=== PATIENT | female | born 1960 | race Caucasian/White ===

== ENCOUNTER 2016-09-16 09:25 | Emergency (ER) | payer MEDICAID ==
[~2016-09-16] VITALS: Ht 162.6 cm; Wt 79.8 kg
[~2016-09-16 09:25] MED LIST: ACE3T PO; ATOR10TA52 PO; CARV6.25 PO; GABA300C8 PO; LURA1TAB2 PO; MULT1TAB57 PO; OMEP20CA5 PO; QUET25TA37 PO; RIV20T PO; SERT-160 PO
[2016-09-16 10:58] LABS: Albumin 3.9 g/dL (3.4-5.0); Alkaline Phosphatase 141 U/L (45-117); Anion Gap 11 (5-15); Aspartate Aminotransferase 26 U/L (15-37); BUN/Creatinine Ratio 21.3; Bilirubin, Total 0.2 mg/dL (0.2-1.0); Blood Urea Nitrogen 19 mg/dL (7-18); Calcium 9.1 mg/dL (8.5-10.1); Carbon Dioxide 24 mmol/L (21-32); Chloride 108 mmol/L (98-107); GFR African American 84 mL/min; GFR Non-African American 70 mL/min; Glucose 100 mg/dL (74-106); Magnesium 2.6 mg/dL (1.6-2.6); Potassium 3.8 mmol/L (3.5-5.1); Sodium 143 mmol/L (136-145); Total Protein 7.8 g/dL (6.4-8.2)
[2016-09-16 11:01] LABS: Basophils # (auto) 0 uL; Basophils % (auto) 0.5 % (0.0-2.0); Eosinophils # (auto) 0.1 uL; Eosinophils % (auto) 1.6 % (0.0-7.0); Hematocrit 39.8 % (36.0-46.0); Hemoglobin 13.5 g/dL (12.2-16.2); Lymphocytes # (auto) 2.4 uL; Lymphocytes % (auto) 28.5 % (10.0-50.0); Mean Corpuscular Hgb Conc. 34.1 g/dL (32.0-36.0); Mean Corpuscular Volume 93.9 fL (80.0-100.0); Mean Platelet Volume 8.8 fL (7.4-10.4); Monocytes # (auto) 0.5 uL; Monocytes % (auto) 6.2 % (0.0-12.0); Neutrophils # (auto) 5.2 uL; Neutrophils % (auto) 63.2 % (37.0-80.0); Platelet Count (auto) 246 10^3/uL (140-450); White Blood Cell 8.3 10^3/uL (4.4-10.8)
[2016-09-16 12:12] VITALS: BP 148/84
== END 2016-09-16 14:38 | disposition home or self-care (01) ==
LOC: ER 09:25
DX: S16.1XXA Strain of muscle, fascia and tendon at neck level, initial encounter (principal); I11.0 Hypertensive heart disease with heart failure; R51 Headache; I50.9 Heart failure, unspecified; M19.90 Unspecified osteoarthritis, unspecified site; J45.909 Unspecified asthma, uncomplicated; F17.210 Nicotine dependence, cigarettes, uncomplicated; Z79.899 Other long term (current) drug therapy; Z88.6 Allergy status to analgesic agent; E11.9 Type 2 diabetes mellitus without complications; Z86.73 Personal history of transient ischemic attack (TIA), and cerebral infarction without residual deficits; Z79.01 Long term (current) use of anticoagulants; W06.XXXA Fall from bed, initial encounter; Y93.89 Activity, other specified; Y99.8 Other external cause status; Y92.89 Other specified places as the place of occurrence of the external cause
CPT/HCPCS: 36415; 70450; 72040; 80053; 83735; 84484; 85025; 93005; 99285; L0120

== ENCOUNTER 2018-07-22 14:26 | Emergency (ER) | payer MEDICAID ==
[~2018-07-22] VITALS: Ht 162.6 cm; Wt 68.0 kg
[~2018-07-22 14:26] MED LIST changes: +GABA300C10 PO; -GABA300C8 PO; -OMEP20CA5 PO; +OMEP20CA74 PO
[2018-07-22 15:59] LABS: Basophils # (auto) 0.1 uL; Basophils % (auto) 0.7 % (0.0-2.0); Eosinophils # (auto) 0.1 uL; Eosinophils % (auto) 1.6 % (0.0-7.0); Hematocrit 37.8 % (36.0-46.0); Hemoglobin 12.7 g/dL (12.2-16.2); Lymphocytes # (auto) 2.4 uL; Lymphocytes % (auto) 31.7 % (10.0-50.0); Mean Corpuscular Hemoglobin 31.8 pg (28.0-32.0); Mean Corpuscular Hgb Conc. 33.5 g/dL (32.0-36.0); Mean Corpuscular Volume 94.9 fL (80.0-100.0); Monocytes # (auto) 0.5 uL; Monocytes % (auto) 6.5 % (0.0-12.0); Neutrophils # (auto) 4.5 uL; Neutrophils % (auto) 59.5 % (37.0-80.0); Nucleated Red Blood Cells % 0.1 %; Platelet Count (auto) 175 10^3/uL (140-450); Red Blood Cells 3.98 10^6/uL (4.0-5.20); Red Cell Distribution Width 13.3 % (11.8-14.3); White Blood Cell 7.6 10^3/uL (4.4-10.8)
[2018-07-22 16:09] LABS: Albumin 3.5 g/dL (3.4-5.0); Calcium 8.5 mg/dL (8.5-10.1); Magnesium 2.3 mg/dL (1.6-2.6); Potassium 3.2 mmol/L (3.5-5.1)
[2018-07-22 16:10] LABS: Bilirubin, Total 0.2 mg/dL (0.2-1.0); Total Protein 7.6 g/dL (6.4-8.2)
[2018-07-23 01:01] VITALS: BP 140/78
== END 2018-07-23 01:02 | disposition home or self-care (01) ==
LOC: EDBD 14:26 → EDUNIT# 14:26 → ER 14:37
DX: M62.838 Other muscle spasm (principal); M54.2 Cervicalgia; R07.9 Chest pain, unspecified; M19.90 Unspecified osteoarthritis, unspecified site; I11.0 Hypertensive heart disease with heart failure; I50.9 Heart failure, unspecified; F17.210 Nicotine dependence, cigarettes, uncomplicated; Z88.5 Allergy status to narcotic agent; Z79.899 Other long term (current) drug therapy; J45.909 Unspecified asthma, uncomplicated; Z86.73 Personal history of transient ischemic attack (TIA), and cerebral infarction without residual deficits; Z90.49 Acquired absence of other specified parts of digestive tract; Z90.710 Acquired absence of both cervix and uterus; Z98.51 Tubal ligation status
CPT/HCPCS: 36415; 70450; 71046; 80053; 83735; 85025; 93005

== ENCOUNTER 2018-10-09 12:42 | Inpatient (IN) | payer MEDICAID ==
[~2018-10-09] VITALS: Ht 162.6 cm; Wt 80.9 kg
[2018-10-09 14:33] LABS: Basophils # (auto) 0 uL; Basophils % (auto) 0.5 % (0.0-2.0); Eosinophils # (auto) 0.1 uL; Hematocrit 36.4 % (36.0-46.0); Hemoglobin 12.1 g/dL (12.2-16.2); Lymphocytes # (auto) 2.4 uL; Lymphocytes % (auto) 28.4 % (10.0-50.0); Mean Corpuscular Hemoglobin 30.7 pg (28.0-32.0); Mean Corpuscular Hgb Conc. 33.2 g/dL (32.0-36.0); Mean Corpuscular Volume 92.6 fL (80.0-100.0); Monocytes # (auto) 0.7 uL; Monocytes % (auto) 7.9 % (0.0-12.0); Neutrophils # (auto) 5.2 uL; Neutrophils % (auto) 62.2 % (37.0-80.0); Platelet Count (auto) 196 10^3/uL (140-450); Red Blood Cells 3.94 10^6/uL (4.0-5.20); Red Cell Distribution Width 14.9 % (11.8-14.3); White Blood Cell 8.4 10^3/uL (4.4-10.8)
[2018-10-09 14:47] LABS: Albumin 3.6 g/dL (3.4-5.0); Anion Gap 9 (5-15); Blood Urea Nitrogen 8 mg/dL (7-18); Calcium 9.1 mg/dL (8.5-10.1); Carbon Dioxide 26 mmol/L (21-32); Chloride 108 mmol/L (98-107); Glucose 79 mg/dL (74-106); Potassium 3.3 mmol/L (3.5-5.1); Sodium 143 mmol/L (136-145)
[2018-10-09 14:52] LABS: Alanine Aminotransferase 29 U/L (13-56); Alkaline Phosphatase 137 U/L (45-117); Aspartate Aminotransferase 19 U/L (15-37); BUN/Creatinine Ratio 9.1; Bilirubin, Total 0.2 mg/dL (0.2-1.0); GFR African American 85 mL/min; GFR Non-African American 70 mL/min; Total Protein 7.3 g/dL (6.4-8.2)
[2018-10-09 14:58] LABS: INR 0.94 (0.9-1.15); Partial Thromboplastin Time 25.4 sec (23.78-33.04); Prothrombin Time 10.1 sec (9.27-12.13)
[2018-10-09] MEDS ORDERED: POTASSIUM CHL 20 Meq TABLET PO ONE (16:15)
[2018-10-09] MEDS ORDERED: ASPirin-EC 81 mg tab PO ONE (16:15)
[2018-10-09] MEDS ORDERED: hydrALAZINE HCL 20 MG/ML VL IV PRN (19:30)
[2018-10-09] MEDS ORDERED: HYDROcodone-ACET 5/325MG TAB PO PRN (19:30)
[2018-10-09] MEDS ORDERED: NITROGLYCERIN 0.4 MG SL TAB SL PRN (19:30)
[2018-10-09] MEDS ORDERED: MORPHINE SULF INJ 2 MG/ML SYRINGE 1ML IV PRN ×2 (19:30)
[2018-10-09] MEDS ORDERED: ACETAMINOPHEN 500 MG TAB PO PRN (19:30)
[2018-10-09] MEDS ORDERED: ONDANSETRON HCL 4 MG/2 ML VIAL IV PRN (19:30)
[2018-10-09] MEDS: METOPROLOL TARTRATE 25 MG TAB PO SCH (21:58)
[2018-10-09] MEDS: DOCUSATE SOD 100 MG CAP PO SCH (21:58)
[2018-10-09] MEDS ORDERED: ATORVASTATIN 20 MG TAB PO SCH (22:00)
--- NOTE | 2018-10-09 22:15 | NUR ---
Received patient from ER. The patient is A/Ox4. The patient c/o chest pain that has been constant since her time in the ER. The patient has been oriented to the room. Instructed on POC and to call for assist PRN, will continue to monitor for changes Q1hr and PRN.
[2018-10-09 22:30] VITALS: BP 132/82
--- NOTE | 2018-10-09 23:00 | NUR ---
Patient states that she takes Denver at home for pain. Denver was held earlier due to allergy to Morphine. Spoke to Pharmacist who states that it is okay to give Denver if the patient has taken it at home without a reaction.
[2018-10-10] MEDS: HYDROcodone-ACET 5/325MG TAB PO PRN ×2 (00:19→07:43)
[2018-10-10 00:53] VITALS: BP 116/69
[2018-10-10] MEDS ORDERED: HYDR-531 PO (04:11)
[2018-10-10 05:16] VITALS: BP 106/70
--- NOTE | 2018-10-10 07:30 | NUR ---
Opening Shift Note Assumed care of patient, awake and alert. No S/S of distress/SOB. Pain reported to the chest. Pain management options discussed with the patient. Instructed on POC and to call for assist PRN, will continue to monitor for changes Q1hr and PRN.
[2018-10-10 08:00] VITALS: BP 96/57
[2018-10-10 08:14] LABS: Basophils # (auto) 0 uL; Basophils % (auto) 0.6 % (0.0-2.0); Eosinophils # (auto) 0.2 uL; Eosinophils % (auto) 2.6 % (0.0-7.0); Hematocrit 36.5 % (36.0-46.0); Hemoglobin 12.3 g/dL (12.2-16.2); Lymphocytes # (auto) 2.2 uL; Lymphocytes % (auto) 34.3 % (10.0-50.0); Mean Corpuscular Hemoglobin 31.3 pg (28.0-32.0); Mean Corpuscular Hgb Conc. 33.6 g/dL (32.0-36.0); Mean Corpuscular Volume 92.9 fL (80.0-100.0); Monocytes # (auto) 0.4 uL; Monocytes % (auto) 6.1 % (0.0-12.0); Neutrophils # (auto) 3.6 uL; Neutrophils % (auto) 56.4 % (37.0-80.0); Nucleated Red Blood Cells % 0.1 %; Platelet Count (auto) 198 10^3/uL (140-450); Red Blood Cells 3.93 10^6/uL (4.0-5.20); Red Cell Distribution Width 14.8 % (11.8-14.3); White Blood Cell 6.5 10^3/uL (4.4-10.8)
[2018-10-10 08:41] LABS: INR 0.96 (0.9-1.15); Partial Thromboplastin Time 24.9 sec (23.78-33.04); Prothrombin Time 10.3 sec (9.27-12.13)
[2018-10-10 08:49] LABS: BUN/Creatinine Ratio 10.3; Potassium 4.2 mmol/L (3.5-5.1)
[2018-10-10 08:53] VITALS: BP 96/57
[2018-10-10] MEDS: METOPROLOL TARTRATE 25 MG TAB PO SCH (10:00)
[2018-10-10] MEDS ORDERED: ASPirin-EC 81 mg tab PO SCH (10:00)
[2018-10-10] MEDS ORDERED: PANTOPRAZOLE 40 MG/10 ML VIAL IV SCH (10:00)
[2018-10-10] MEDS ORDERED: LISINOPRIL 10 MG TAB PO SCH (10:00)
[2018-10-10 11:10] LABS: Alcohol, Urine < 3.0 mg/dL (0-5); Amphetamine Screen, Urine NEGATIVE (NEGATIVE); Barbiturate Scree,Urine NEGATIVE (NEGATIVE); Benzodiazephine Screen, Urine NEGATIVE (NEGATIVE); Cannabinoid Screen, Urine NEGATIVE (NEGATIVE); Cocaine Screen, Urine NEGATIVE (NEGATIVE); Opiate Scree,Urine POSITIVE (NEGATIVE); Phencyclidine Screen, Urine NEGATIVE (NEGATIVE)
[2018-10-10 11:11] LABS: Urine Bacteria FEW /hpf (None Seen); Urine Blood Negative /uL (Negative); Urine Specific Gravity 1.022 (1.001-1.035); Urine WBC 79 /hpf (0 - 5)
[2018-10-10] MEDS: DOCUSATE SOD 100 MG CAP PO SCH (12:39)
[2018-10-10 13:00] VITALS: BP 98/54
[2018-10-10] MEDS ORDERED: cefTRIAXone 1GM/50ML D5W 50 ML IV ONE (13:15)
--- NOTE | 2018-10-10 14:15 | NUR ---
spoke with Efren GOLDEN. i informed him that the patient's echo would not be read until friday. Received order to move forward with the discharge anyway.
[2018-10-10 15:56] VITALS: BP 98/54
--- NOTE | 2018-10-10 16:44 | NUR ---
called [facility] [employer] to get patient transportation home. they will be here in about 15 minutes.
--- NOTE | 2018-10-10 17:12 | NUR ---
Discharge instructions given as ordered. Encourage to follow up with PMD as instructed. All questions and concerns addressed. Patient verbalized understanding. IV removed with catheter intact, pressure dressing applied. Telemetry unit returned to [facility]. Patient taken to taxi via wheelchair with all personal belongings, accompanied by staff. No distress noted at time of departure.
== END 2018-10-10 17:50 | disposition home or self-care (01) | DRG 463 ==
LOC: EDBD 12:42 → ER 12:42 → TELE 19:28 → TELE-WESTW 22:05
PROVIDERS: ADMIT Nurse Practitioner Acute Care; ATTEND Nurse Practitioner Acute Care
DX: N39.0 Urinary tract infection, site not specified (principal); I11.0 Hypertensive heart disease with heart failure; F25.9 Schizoaffective disorder, unspecified; I50.32 Chronic diastolic (congestive) heart failure; R07.89 Other chest pain; E87.6 Hypokalemia; R53.1 Weakness; F32.9 Major depressive disorder, single episode, unspecified; M19.90 Unspecified osteoarthritis, unspecified site; F41.9 Anxiety disorder, unspecified; F17.210 Nicotine dependence, cigarettes, uncomplicated; E78.5 Hyperlipidemia, unspecified; D64.9 Anemia, unspecified; J45.909 Unspecified asthma, uncomplicated; Z79.899 Other long term (current) drug therapy; Z82.49 Family history of ischemic heart disease and other diseases of the circulatory system; Z86.73 Personal history of transient ischemic attack (TIA), and cerebral infarction without residual deficits; Z90.710 Acquired absence of both cervix and uterus; Z88.5 Allergy status to narcotic agent; Z90.49 Acquired absence of other specified parts of digestive tract; Z98.51 Tubal ligation status
CPT/HCPCS: 36415; 70450; 71045; 80048; 80053; 80061; 80307; 81001; 83036; 83735; 83880; 84443; 84484; 85025; 85610; 85730; 86141; 93005; 93306; 94761; C9113; G0378; J0696

== ENCOUNTER 2019-09-15 08:33 | Emergency (ER) | payer MEDICAID ==
[~2019-09-15] VITALS: Ht 162.6 cm; Wt 77.1 kg
[~2019-09-15 08:33] MED LIST changes: +HYDR-531 PO
[2019-09-15] MEDS ORDERED: SODIUM CHLORIDE 0.9% 1,000 ML IV ONE (08:55)
[2019-09-15 09:11] LABS: Urine Bacteria FEW /hpf (None Seen); Urine Blood Negative /uL (Negative); Urine Specific Gravity 1.007 (1.001-1.035); Urine WBC 11 /hpf (0 - 5)
[2019-09-15 09:19] LABS: Alcohol, Urine < 3.0 mg/dL (0-5); Amphetamine Screen, Urine NEGATIVE (NEGATIVE); Barbiturate Scree,Urine NEGATIVE (NEGATIVE); Benzodiazephine Screen, Urine NEGATIVE (NEGATIVE); Cannabinoid Screen, Urine NEGATIVE (NEGATIVE); Cocaine Screen, Urine NEGATIVE (NEGATIVE); Opiate Scree,Urine NEGATIVE (NEGATIVE); Phencyclidine Screen, Urine NEGATIVE (NEGATIVE)
[2019-09-15 09:55] LABS: Basophils # (auto) 0.1 10 ^3/uL (0-0.2); Basophils % (auto) 0.6 % (0.0-2.0); Eosinophils # (auto) 0.1 10 ^3/uL (0-0.8); Eosinophils % (auto) 0.9 % (0.0-7.0); Hematocrit 38.1 % (36.0-46.0); Hemoglobin 12.8 g/dL (12.2-16.2); Lymphocytes # (auto) 2.6 10 ^3/uL (0.4-5.4); Lymphocytes % (auto) 28.4 % (10.0-50.0); Mean Corpuscular Hemoglobin 32.7 pg (28.0-32.0); Mean Corpuscular Hgb Conc. 33.6 g/dL (32.0-36.0); Mean Corpuscular Volume 97.2 fL (80.0-100.0); Monocytes # (auto) 0.5 10 ^3/uL (0-1.3); Monocytes % (auto) 5.3 % (0.0-12.0); Neutrophils # (auto) 5.9 10 ^3/uL (1.6-8.6); Neutrophils % (auto) 64.8 % (37.0-80.0); Platelet Count (auto) 189 10^3/uL (140-450); Red Blood Cells 3.92 10^6/uL (4.0-5.20); Red Cell Distribution Width 13.1 % (11.8-14.3); White Blood Cell 9.1 10^3/uL (4.4-10.8)
[2019-09-15] MEDS ORDERED: KETOROLAC TROMETH 15 mg/ml 1ML VL IV ONE (10:00)
[2019-09-15 10:22] LABS: Albumin 3.4 g/dL (3.4-5.0); Anion Gap 7 (5-15); Calcium 8.7 mg/dL (8.5-10.1); Carbon Dioxide 23 mmol/L (21-32); Chloride 110 mmol/L (98-107); Glucose 92 mg/dL (74-106); Magnesium 2.3 mg/dL (1.6-2.6); Potassium 4.4 mmol/L (3.5-5.1); Sodium 140 mmol/L (136-145)
[2019-09-15 11:00] LABS: Alanine Aminotransferase 32 U/L (13-56); Alkaline Phosphatase 151 U/L (45-117); Aspartate Aminotransferase 24 U/L (15-37); Bilirubin, Total 0.3 mg/dL (0.2-1.0); Blood Urea Nitrogen 12 mg/dL (7-18); GFR African American 87 mL/min; GFR Non-African American 72 mL/min
[2019-09-15 17:11] VITALS: BP 142/76
== END 2019-09-15 17:28 | disposition home or self-care (01) ==
LOC: ER 08:33
DX: R51 Headache (principal); N39.0 Urinary tract infection, site not specified; F31.9 Bipolar disorder, unspecified; R42 Dizziness and giddiness; I11.0 Hypertensive heart disease with heart failure; I50.9 Heart failure, unspecified; K21.9 Gastro-esophageal reflux disease without esophagitis; E78.5 Hyperlipidemia, unspecified; Z98.51 Tubal ligation status; Z90.49 Acquired absence of other specified parts of digestive tract; Z90.710 Acquired absence of both cervix and uterus; Z87.891 Personal history of nicotine dependence; Z86.73 Personal history of transient ischemic attack (TIA), and cerebral infarction without residual deficits
CPT/HCPCS: 36415; 71046; 80053; 80307; 81001; 83735; 84443; 84484; 85025; 93005; 96361; 96374; 99285; J1885; J7030

== ENCOUNTER 2020-12-18 11:12 | Emergency (ER) | payer MEDICAID ==
[~2020-12-18] VITALS: Ht 152.4 cm; Wt 68.0 kg
[~2020-12-18 11:12] MED LIST changes: +LURA1TAB PO; -LURA1TAB2 PO
[2020-12-18 12:52] LABS: Urine Bacteria FEW /hpf (None Seen); Urine Blood Negative /uL (Negative); Urine Hyaline Cast FEW /lpf (0 - 2); Urine Specific Gravity 1.007 (1.001-1.035); Urine WBC 23 /hpf (0 - 5)
[2020-12-18 13:17] LABS: Basophils # (auto) 0.1 10 ^3/uL (0-0.2); Basophils % (auto) 0.8 % (0.0-2.0); Eosinophils # (auto) 0 10 ^3/uL (0-0.8); Eosinophils % (auto) 0.1 % (0.0-7.0); Hematocrit 37.5 % (36.0-46.0); Hemoglobin 12.7 g/dL (12.2-16.2); Lymphocytes # (auto) 1.7 10 ^3/uL (0.4-5.4); Lymphocytes % (auto) 13.2 % (10.0-50.0); Mean Corpuscular Hemoglobin 31.6 pg (28.0-32.0); Mean Corpuscular Hgb Conc. 33.9 g/dL (32.0-36.0); Mean Corpuscular Volume 93.3 fL (80.0-100.0); Monocytes # (auto) 0.7 10 ^3/uL (0-1.3); Monocytes % (auto) 5.7 % (0.0-12.0); Neutrophils # (auto) 10.2 10 ^3/uL (1.6-8.6); Neutrophils % (auto) 80.2 % (37.0-80.0); Nucleated Red Blood Cells % 0.1 %; Platelet Count (auto) 163 10^3/uL (140-450); Red Blood Cells 4.02 10^6/uL (4.0-5.20); Red Cell Distribution Width 13.7 % (11.8-14.3); White Blood Cell 12.7 10^3/uL (4.4-10.8)
[2020-12-18 13:35] LABS: Albumin 3.4 g/dL (3.4-5.0); Calcium 8.7 mg/dL (8.5-10.1); Potassium 3.2 mmol/L (3.5-5.1)
[2020-12-18 13:38] LABS: BUN/Creatinine Ratio 10.5; Bilirubin, Total 0.6 mg/dL (0.2-1.0); Total Protein 7.4 g/dL (6.4-8.2)
[2020-12-18 14:46] VITALS: BP 102/66
== END 2020-12-18 15:41 | disposition home or self-care (01) ==
LOC: ER 11:12 → EDBD 11:12 → ER 15:41
DX: N39.0 Urinary tract infection, site not specified (principal); E87.6 Hypokalemia; I11.0 Hypertensive heart disease with heart failure; I50.9 Heart failure, unspecified; E78.5 Hyperlipidemia, unspecified; K21.9 Gastro-esophageal reflux disease without esophagitis; Z79.899 Other long term (current) drug therapy; Z87.891 Personal history of nicotine dependence; Z20.822 Contact with and (suspected) exposure to COVID-19
CPT/HCPCS: 36415; 70450; 71045; 80053; 81001; 85025; 87426; 93005

== ENCOUNTER 2024-10-14 10:40 | Inpatient (IN) | payer MEDICAID ==
[~2024-10-14] VITALS: Ht 165.1 cm; Wt 81.4 kg
[~2024-10-14 10:40] MED LIST changes: -CARV6.25 PO; +CARV6.2517 PO; +GABA-1250 PO; -GABA300C10 PO
--- NOTE | 2024-10-14 10:56 | ED.PDOC ---
History of Present Illness HPI Comments 64-year-old female who comes in with chief complaint of near-syncope today. The [place] and had two episodes where she almost passed out. The patient did not hit her head or have any other injuries. The patient denies any chest pain or shortness for breath but she was complaining of dizziness and a headache. She denies any nausea, vomiting or diarrhea. EN route the patient's Accu-Chek was 160. The patient's seems a little confused so the history is not completely reliable. Chief Complaint: Syncope Time Seen by MD: 10:46 Primary Care Provider: UNKNOWN Reviewed Notes: Nurses Notes, Multimedia Designer Notes, Medications, Allergies (Allergies to morphine) Allergies: Coded Allergies: Morphine (Verified Allergy, Unknown, 06/12/16) HIVES/RASH Home Meds Reported Medications Hydrocodone-Acetaminophen (Bally 10-325 mg) 1 Tab Tab, 1 TAB PO PRN for PAIN SCALE 7 THRU 10, TAB 10/10/18 Atorvastatin Calcium (ATORVASTATIN CALCIUM) 10 Mg Tab, 10 MG PO HS, TAB 04/25/16 Carvedilol (Coreg) 6.25 Mg Tab, 6.25 MG PO BID, TAB 04/25/16 Multiple Vitamins W/ Minerals (One Daily Multivitamin Wo) 1 Tab Tab, 1 TAB PO DAILY, TAB 04/25/16 Lurasidone Hydrochloride (Latuda) 60 Mg Tab, 40 MG PO BID, TAB 04/25/16 Rivaroxaban (Xarelto Tablet) 20 Mg Tb, 20 MG PO DAILY 04/25/16 Acetaminophen W/ Codeine (Tylenol W/Cod #3) 1 Tab Tb, 1 TAB PO Q6HP PRN for MODERATE PAIN 04/25/16 Sertraline Hcl (Sertraline Hcl) 100 Mg Tab, 100 MG PO QAM, TAB 04/25/16 Omeprazole (PRILOSEC) 20 Mg Cap, 20 MG PO DAILY, CAP 04/25/16 Gabapentin (Gabapentin) 300 Mg Cap, 400 MG PO TID, MG 04/25/16 Quetiapine Fumerate (Seroquel) 25 Mg Tab, 100 MG PO HS, MG 04/25/16 Information Source: Patient, Emergency Med Personnel Mode of Arrival: EMS Severity: Moderate Timing: Hours Duration: Intermittent Prehospital treatment: Accucheck (One hundred sixty), Imagery Intelligence, IVF Associated signs and symptoms No associated chest pain with the patient was complaining of dizziness and headache Past Medical History PAST MEDICAL HISTORY: Anxiety, Arthritis, Asthma, CHF, CVA, Depression, GERD, High Lipids, HTN Surgical History: Cholecystectomy, Hysterectomy, Tubal Ligation NON FOOD RECEIVING CLERK History: No Pertinent NON FOOD RECEIVING CLERK History Family History Family History: No family hx of HTN Social History Smoker: Non-Smoker, Quit Less Than 1 Year Alcohol: Denies ETOH Use Drugs: Denies Drug Use Lives In: Assisted Care Constitutional: reports: weakness; denies: chills, diaphoresis, fatigue, fever, malaise, sweats, others EENTM: denies: blurred vision, double vision, ear bleeding, ear discharge, ear drainage, ear pain, ear ringing, eye pain, eye redness, hearing loss, mouth pain, mouth swelling, nasal discharge, nose bleeding, nose congestion, nose pain, photophobia, tearing, throat pain, throat swelling, voice changes, others Respiratory: denies: cough, hemoptysis, orthopnea, SOB at rest, shortness of breath, SOB with excertion, stridor, wheezing, others Cardiovascular: reports: syncope; denies: chest pain, dizzy spells, diaphoresis, Dyspnea on exertion, edema, irregular heart beat, left arm pain, lightheadedness, palpitations, PND, others Gastrointestinal: denies: abdomen distended, abdominal pain, blood streaked bowels, constipated, diarrhea, dysphagia, difficulty swallowing, hematemesis, melena, nausea, poor appetite, poor fluid intake, rectal bleeding, rectal pain, vomiting, others Genitourinary: denies: abnormal vagina bleeding, burning, dyspareunia, dysuria, flank pain, frequency, hematuria, incontinence, pain, , vagina discharge, urgency, others Neurological: reports: dizziness, headache; denies: fainting, left sided numbness, left sided weakness, numbness, paresthesia, pre-existing deficit, right sided numbness, right sided weakness, seizure, speech problems, tingling, tremors, weakness, others Musculoskeletal: denies: back pain, gout, joint pain, joint swelling, muscle pain, muscle stiffness, neck pain, others Integumetry: denies: bruises, change in color, change in hair/nails, dryness, laceration, lesions, lumps, rash, wounds, others Allergic/Immunocompromised: denies: Difficulty Healing, Frequent Infections, Hives, Itching, others Hematologic/Lymphatic: denies: anemia, blood clots, easy bleeding, easy bruising, swollen glands, others Endocrine: denies: excessive hunger, excessive sweating, excessive thirst, excessive urination, flushing, intolerance to cold, intolerance to heat, unexplained weight gain, unexplained weight loss, others Psychiatric: denies: anxiety, bipolar disorder, depression, hopeless, panic disorder, schizophrenia, sleepless, suicidal, others Physical Exam General Appearance: Moderate Distress HEENT: Normal ENT Inspection, Pharynx Normal, TMs Normal Neck: Full Range of Motion, Non-Tender, Normal, Normal Inspection Respiratory: Chest Non-Tender, Lungs Clear, No Accessory Muscle Use, No Respiratory Distress, Normal Breath Sounds Cardiovascular: No Edema, No JVD, No Murmur, No Gallop, Normal Peripheral Pulses, Regular Rate/Rhythm Breast Exam: Deferred Gastrointestinal: No Organomegaly, Non Tender, No Pulsatile Mass, Normal Bowel Sounds, Soft Genitalia: Deferred Pelvic: Deferred Rectal: Deferred Extremities: No calf tenderness, Normal capillary refill, Normal inspection, Normal range of motion, Non-tender, No pedal edema Musculoskeletal : Apperance: Normal Neurologic: Alert, surgical orderly II-XII nml as Tested, Motor Weakness, Normal Affect, Normal Mood, No Sensory Deficits Cerebellar Function: Normal Reflexes: Normal Skin: Dry, Pallor, Warm Lymphatic: No Adenopathy Was a procedure done? Was a procedure done?: No EKG EKG : Pulse Rate (adult): 80 Deport: Normal Cardiac Rhythm: NSR Block: None ST: Nonsp Differential Dx Considerations may include: Generalized weakness, syncope, blunt head trauma, chest pain X-Ray, Labs, Meds, VS Vital Signs Date Time Temp Pulse Resp B/P (MAP) Pulse Ox O2 Delivery O2 Flow Rate FiO2 10/14/24 13:00 76 19 155/93 (113) 98 10/14/24 11:18 87 16 98 Room Air* 0 21 10/14/24 11:17 80 10/14/24 11:04 98.0 87 16 154/86 (108) 98 98.0 10/14/24 10:53 98.4 82 16 138/102 (114) 97 98.4 10/14/24 10:40 80 Lab Test 10/14/24 11:55 10/14/24 11:42 10/14/24 10:56 Range/Units Troponin I High Sensitivity < 3 L < 3 L </=34 ng/L Urine Color Colorless Yellow Urine Clarity Clear Clear Urine pH 6.0 5.0-9.0 Urine Specific [place] 1.009 1.001-1.035 Urine Protein Negative Negative Urine Ketones Negative Negative Urine Blood Negative Negative /uL Urine Nitrite Negative Negative Urine Bilirubin Negative Negative Urine Urobilinogen Normal Negative mg/dL Urine Leukocyte Esterase Trace Negative /uL Urine RBC 1 0 - 4 /hpf Urine Microscopic WBC 5 0-5 /HPF Urine Squamous Epithelial Cells Few <5 /hpf Urine Bacteria Few H None Seen /hpf Urine Glucose Normal Normal mg/dL Urine Opiates Screen Neg NEGATIVE Urine Fentanyl Screen Neg NEGATIVE Urine Barbiturates Screen Neg NEGATIVE Urine Phencyclidine Screen Neg NEGATIVE Urine Amphetamines Screen Neg NEGATIVE Urine Benzodiazepines Screen Neg NEGATIVE Urine Cocaine Screen Neg NEGATIVE Urine Cannabinoids Screen Neg NEGATIVE White Blood Count 7.8 4.4-10.8 10^3/uL Red Blood Count 4.25 4.0-5.20 10^6/uL Hemoglobin 13.7 12.2-16.2 g/dL Hematocrit 41.1 36.0-46.0 % Mean Corpuscular Volume 96.7 80.0-100.0 fL Mean Corpuscular Hemoglobin 32.1 H 28.0-32.0 pg Mean Corpuscular Hemoglobin Concent 33.2 32.0-36.0 g/dL Red Cell Distribution Width 13.1 11.8-14.3 % Platelet Count 158 140-450 10^3/uL Mean Platelet Volume 8.2 6.9-10.8 fL Neutrophils (%) (Auto) 66.7 37.0-80.0 % Lymphocytes (%) (Auto) 25.8 10.0-50.0 % Monocytes (%) (Auto) 5.2 0.0-12.0 % Eosinophils (%) (Auto) 1.7 0.0-7.0 % Basophils (%) (Auto) 0.6 0.0-2.0 % Neutrophils # (Auto) 5.2 1.6-8.6 10 ^3/uL Lymphocytes # (Auto) 2.0 0.4-5.4 10 ^3/uL Monocytes # (Auto) 0.4 0-1.3 10 ^3/uL Eosinophils # (Auto) 0.1 0-0.8 10 ^3/uL Basophils # (Auto) 0 0-0.2 10 ^3/uL Nucleated Red Blood Cells 0.0 % Sodium Level 141 136-145 mmol/L Potassium Level 4.3 3.5-5.1 mmol/L Chloride Level 109 H 98-107 mmol/L Carbon Dioxide Level 23 20-31 mmol/L Anion Gap 9 5-15 Blood Urea Nitrogen 13 9-23 mg/dL Creatinine 0.97 0.550-1.02 mg/dL Glomerular Filtration Rate Calc 65 >90 mL/min BUN/Creatinine Ratio 13.4 10.0-20.0 Serum Glucose 171 H 74-106 mg/dL Calcium Level 9.7 8.7-10.4 mg/dL Plasma/Serum Blood Alcohol < 3.0 <10 mg/dL [place] [address] Ph: [phone] DIAGNOSTIC IMAGING Diagnostic Imaging Report : [id number] Signed PATIENT: AADM REZA ACCT: [id number] UNIT: [id number] : 1960 LOC: ER ROOM / BED: / AGE / SEX: 64 / F ADM STATUS: REG ER SERVICE [id number] ORDERING PHYSICIAN: NIKA GOLDBERG MD PROCEDURE(s): CXRP - CHEST PORTABLE REASON: syncope ORDER NUMBER(s): [id number], ACCESSION NUMBER(s): [id number] CHEST RADIOGRAPH Indication: syncope Technique: Single frontal view of the chest was obtained COMPARISON: CHEST PORTABLE on DOS: 12/18/20 FINDINGS: Lines and Tubes: None Lungs: Increased interstitial prominence Pleura: No effusion. No pneumothorax. Cardiomediastinal contours: Unremarkable Bones: Unremarkable IMPRESSION: Pulmonary vascular congestion or viral pneumonia ATED BY: COLEMAN BARAKAT MD DICTATED DATE/TIME: 10/14/24 112 SIGNED BY: COLEMAN BARAKAT MD SIGNED DATE/TIME: 10/14/241119 CC: [place] [address] Ph: [phone] DIAGNOSTIC IMAGING Diagnostic Imaging Report : [id number] Signed PATIENT: ADAM REZA ACCT: [id number] UNIT: [id number] : 1960 LOC: ER ROOM / BED: / AGE / SEX: 64 / F ADM STATUS: REG ER SERVICE [id number] ORDERING PHYSICIAN: NIKA GOLDBERG MD PROCEDURE(s): HWOCT - HEAD WITHOUT CONTRAST REASON: syncope ORDER NUMBER(s): [id number], ACCESSION NUMBER(s): [id number] EXAM: CT HEAD WITHOUT CONTRAST INDICATION: syncope TECHNIQUE: CT of the head without intravenous contrast. Radiation Dose : 1. Head: CT Dose: CTDI volume is 51 mGy. Dose-length product is 901 mGy*cm The dose indicators for CT are the volume Computed Tomography (CT) Dose Index (CTDIvol) and the Dose Length Product (DLP), and are measured in units of mGy and mGy-cm, respectively. These indicators are not patient dose, but values generated from the CT scanner acquisition factors. The report includes radiation exposure data for exposures received during this examination. COMPARISON: HEAD WITHOUT CONTRAST on DOS: 12/18/20 FINDINGS: There is no evidence of acute intracranial hemorrhage, extra-axial collection, mass effect, midline shift, herniation or hydrocephalus. Left basal ganglia chronic lacunar infarct. The ventricles, sulci and cisterns are age appropriate. The arriaga-white differentiation is intact. Patchy periventricular and subcortical white matter hypoattenuation is nonsp ecific but may be related to small vessel ischemic disease. The visualized paranasal sinuses and mastoid air cells are clear. The surrounding soft tissues and osseous structures are unremarkable. IMPRESSION: No acute intracranial abnormality. Radiation optimization: All CT scans at this facility use at least one of these dose optimization techniques: automated exposure control mA and/or kV adjustment per patient size (includes targeted exams where dose is matched to clinical indication) or iterative reconstruction. ATED BY: COLEMAN BARAKAT MD DICTATED DATE/TIME: 10/14/241126 SIGNED BY: COLEMAN BARAKAT MD SIGNED DATE/TIME: 10/14/24 112 CC: IV Hep-Lock was established. The chest x-ray shows: IMPRESSION: Pulmonary vascular congestion or viral pneumonia The patient's CBC is within normal limits The chemistry panel is within normal limits The alcohol level is negative The urine tox is negative The urine test is positive for trace infection At this time, the patient was being admitted to the hospitalist Images Reviewed?: Images reviewed and evaluated by me Time of 1ST Reevaluation: 11:16 Reevaluation 1ST: Unchanged Patient Education/Counseling: Diagnosis, Treatment, Prognosis Family Education/Counseling: No Family Present Departure 1 Departure Time of Disposition: 14:25 Impression: Primary Impression: Generalized weakness Additional Impressions: Autonomic dysfunction UTI (urinary tract infection) Qualified Codes: N30.00 - Acute cystitis without hematuria Disposition: ADMITTED INPATIENT Admit to: Tele Condition: Fair Critical Care Note Critical Care Time?: Yes (35 min-critical care time only) Stability Stability form required: Yes Unstable for transfer: Telemetry monitoring (Telemetry monitoring required), ED Physician Assesment (Clinical assesment) Heart Score Heart Score: Heart Score Response (Comments) Value History N/A 0 EKG N/A 0 Age N/A 0 Risk Factors N/A 0 Troponin N/A 0 Total 0 I personally scribed for NIKA GOLDBERG MD ([email or web address]) on 10/14/24 at 11:35. Electronically submitted by Marni Roe ([email or web address]). I personally scribed for NIKA GOLDBERG MD ([email or web address]) on 10/14/24 at 11:36. Electronically submitted by Marni Roe ([email or web address]). NIKA GOLDBERG MD Oct 14, 2024 10:56
[2024-10-14 11:08] LABS: Basophils # (auto) 0 10 ^3/uL (0-0.2); Basophils % (auto) 0.6 % (0.0-2.0); Eosinophils # (auto) 0.1 10 ^3/uL (0-0.8); Eosinophils % (auto) 1.7 % (0.0-7.0); Hematocrit 41.1 % (36.0-46.0); Hemoglobin 13.7 g/dL (12.2-16.2); Lymphocytes % (auto) 25.8 % (10.0-50.0); Mean Corpuscular Hemoglobin 32.1 pg (28.0-32.0); Mean Corpuscular Hgb Conc. 33.2 g/dL (32.0-36.0); Mean Corpuscular Volume 96.7 fL (80.0-100.0); Monocytes # (auto) 0.4 10 ^3/uL (0-1.3); Monocytes % (auto) 5.2 % (0.0-12.0); Neutrophils # (auto) 5.2 10 ^3/uL (1.6-8.6); Neutrophils % (auto) 66.7 % (37.0-80.0); Platelet Count (auto) 158 10^3/uL (140-450); Red Blood Cells 4.25 10^6/uL (4.0-5.20); Red Cell Distribution Width 13.1 % (11.8-14.3); White Blood Cell 7.8 10^3/uL (4.4-10.8)
[2024-10-14 11:18] VITALS: PULSE 87; RESP 16; O2SAT 98
--- NOTE | 2024-10-14 11:22 | DVH ---
CHEST RADIOGRAPH Indication: syncope Technique: Single frontal view of the chest was obtained COMPARISON: CHEST PORTABLE on DOS: 12/18/20 FINDINGS: Lines and Tubes: None Lungs: Increased interstitial prominence Pleura: No effusion. No pneumothorax. Cardiomediastinal contours: Unremarkable Bones: Unremarkable IMPRESSION: Pulmonary vascular congestion or viral pneumonia
[2024-10-14 11:26] LABS: Potassium 4.3 mmol/L (3.5-5.1); Sodium 141 mmol/L (136-145)
[2024-10-14 11:27] LABS: Anion Gap 9 (5-15); Calcium 9.7 mg/dL (8.7-10.4); Carbon Dioxide 23 mmol/L (20-31)
--- NOTE | 2024-10-14 11:29 | DVH ---
EXAM: CT HEAD WITHOUT CONTRAST INDICATION: syncope TECHNIQUE: CT of the head without intravenous contrast. Radiation Dose : 1. Head: CT Dose: CTDI volume is 51 mGy. Dose-length product is 901 mGy*cm The dose indicators for CT are the volume Computed Tomography (CT) Dose Index (CTDIvol) and the Dose Length Product (DLP), and are measured in units of mGy and mGy-cm, respectively. These indicators are not patient dose, but values generated from the CT scanner acquisition factors. The report includes radiation exposure data for exposures received during this examination. COMPARISON: HEAD WITHOUT CONTRAST on DOS: 12/18/20 FINDINGS: There is no evidence of acute intracranial hemorrhage, extra-axial collection, mass effect, midline s hift, herniation or hydrocephalus. Left basal ganglia chronic lacunar infarct. The ventricles, sulci and cisterns are age appropriate. The arriaga-white differentiation is intact. Patchy periventricular and subcortical white matter hypoattenuation is nonspecific but may be related to small vessel ischemic disease. The visualized paranasal sinuses and mastoid air cells are clear. The surrounding soft tissues and osseous structures are unremarkable. IMPRESSION: No acute intracranial abnormality. Radiation optimization: All CT scans at this facility use at least one of these dose optimization vero hniques: automated exposure control mA and/or kV adjustment per patient size (includes targeted exam s where dose is matched to clinical indication) or iterative reconstruction.
[2024-10-14 11:32] LABS: BUN/Creatinine Ratio 13.4 (10.0-20.0); Blood Urea Nitrogen 13 mg/dL (9-23)
[2024-10-14 11:33] LABS: Blood Alcohol < 3.0 mg/dL (<10); Chloride 109 mmol/L (98-107); Glucose 171 mg/dL (74-106)
[2024-10-14 12:09] LABS: Urine Bacteria FEW /hpf (None Seen); Urine Blood Negative /uL (Negative); Urine Clarity Clear (Clear); Urine Color Colorless (Yellow); Urine Protein, UAD Negative (Negative); Urine Specific Gravity 1.009 (1.001-1.035); Urine Squamous Epithelial Cell FEW /hpf (<5); Urine Urobilinogen Normal (Negative); Urine WBC 5 /HPF (0-5)
[2024-10-14 12:21] LABS: Cannabinoid Screen, Urine Neg (NEGATIVE)
[2024-10-14 12:30] LABS: Opiate Scree,Urine Neg (NEGATIVE)
[2024-10-14 12:31] LABS: Amphetamine Screen, Urine Neg (NEGATIVE); Barbiturate Scree,Urine Neg (NEGATIVE); Benzodiazephine Screen, Urine Neg (NEGATIVE); Cocaine Screen, Urine Neg (NEGATIVE); Phencyclidine Screen, Urine Neg (NEGATIVE)
[2024-10-14] MEDS: cefTRIAXone 1GM/50ML D5W 50 ML IV ONE (14:52)
--- NOTE | 2024-10-14 18:55 | ECG ---
[facility] Test Date: 2024-10-14 Test Time: 10:38:35 Pat Name: ADAM REZA Department: ED Room: 0251T Gender: F Spa Experience Coordinator: NICHO : 1960 Requested By: NIKA GOLDBERG Order Number: [id number] Reading MD: Natan Villa Measurements Intervals [place] Rate: 80 P: 73 WV: 134 QRS: 71 QRSD: 89 T: 45 QT: 397 QTc: 458 Interpretive Statements Sinus rhythm Electronically Signed On 10-15-2024 18:45:50 PDT by Natan Villa Please click the below link to view image of tracing.
[2024-10-14] MEDS ORDERED: cefTRIAXone 2GM/50ML D5W 50 ML IV ONE (23:15)
--- NOTE | 2024-10-14 23:20 | DVHHPRES ---
History of Present Illness Resident Creating Document: KANWAL ROSE RESIDENT Reason for Visit: syncope History of Present Illness Patient is a 64-year-old female who was brought to the ED to due to pre-syncopal episode. [place] where she had two episodes of " almost passed out". EN route the patient's Accu-Chek was 160. She did not hit her did not hit her head or had any other injuries. The patient denies any chest pain, palpitation or shortness of breath but she complained of dizziness and a headache. She denies any nausea, vomiting or diarrhea. She denied any cardiac history but mentioned that she takes lots of medication morning, afternoon and in the evening. In the ED, CT head showed no acute intracranial abnormality, chest ex-ray showed Pulmonary vascular congestion or viral pneumonia, Ekg showed sinus rhythm and no prolong QTc. Urinalysis showed trace leukocyte esterase with few bacteria and toxicology was negative for any illicit substances that might have caused the syncope. Patient's home medication include carvedilol. Pmhx: Paroxysmal AFIB, Anxiety, Arthritis, Asthma, CHF, CVA, Depression, GERD, hyperlipidemia, HTN Past Surgical History: Cholecystectomy, Hysterectomy, Tubal Ligation MANAGER TREASURY History: No Pertinent MANAGER TREASURY History Family History: No family hx of HTN Social history: quit smoking about a year ago, denied any alcohol use or illicit drug use lives in assisted living Medication: Rivaroxaban, fluoxetine Past Medical History See hpi Past Surgical History See hpi Review of Systems Review of Systems Constitutional: Denies fever no chills no feeling of malaise HEENT: Denies headache, ear pain, ear discharges, conjunctivitis, nasal discharge throat pain Cardiovascular: Denies chest pain, palpitation, orthopnea, PND, or pedal edema Respiratory: Denies shortness of breath, cough cough, sputum production, hemopty sis, GI: Denies abdominal pain, nausea, vomiting, diarrhea, hematemesis, hematochezia, : Denies frequency, urgency, hematuria, Endocrine: Denies unintentional weight gain or weight loss, feeling of hot flashes, Ilir: Denies easy bruising, bleeding disorders, epistaxis Musculoskeletal: Denies joint pains, muscle aches Psych: No evidence of depression, servando, suicidal ideation Allergies: Coded Allergies: Morphine (Verified Allergy, Unknown, 11/30/16) HIVES/RASH Medications Current Medications Medications Dose Ordered Sig/Quentin Route Start Time Stop Time Status Last Admin Dose Admin Acetaminophen/ Codeine Phosphate 1 tab Q6HP PRN PO 10/14/24 23:15 UNV Gabapentin 400 mg TID PO 10/15/24 06:00 UNV Quetiapine Fumarate 100 mg HS PO 10/15/24 22:00 UNV Rivaroxaban 20 mg DAILY PO 10/15/24 10:00 UNV Patient Own Medication 10 mg HS PO 10/15/24 22:00 UNV Patient Own Medication 6.25 mg BID PO 10/15/24 10:00 UNV Patient Own Medication 40 mg BID PO 10/15/24 10:00 UNV Patient Own Medication 20 mg DAILY PO 10/15/24 10:00 UNV Patient Own Medication 100 mg QAM PO 10/15/24 07:00 UNV Exam Vital Signs Vital Signs Date Time Temp Pulse Resp B/P (MAP) Pulse Ox O2 Delivery O2 Flow Rate FiO2 10/14/24 21:30 98.0 100 15 168/90 (116) 97 98.0 10/14/24 19:30 Room Air* 0 21 Exam General Appearance: Alert, Oriented X3, Cooperative, No acute distress HEENT: Atraumatic, PERRLA, EOMI, Mucous membrane moist/pink, poor dentition Respiratory: Clear to auscultation, Normal air movement Cardiovascular: Regular rate, Normal S1, Normal S2, No murmurs, no chest wall tenderness Abdominal: NO distention, no tenderness, bowel sounds present, no scars noted Extremities: No clubbing, No cyanosis, No edema, Normal pulses, No tenderness/swelling Skin: No rashes, No breakdown, No significant lesion Neuro: Her speech was a little difficult to comprehend due to no teeth, but she is not confused. Strength at 5/5 X4 ext, Normal tone, Sensation intact, Cranial nerves 3-12 NL, Reflexes 2+ Psych/Mental Status: Mental status NL, Mood NL Labs/Xrays Labs Test 10/14/24 11:55 10/14/24 11:42 10/14/24 10:56 Range/Units Troponin I High Sensitivity < 3 L </=34 ng/L Urine Color Colorless Yellow Urine Clarity Clear Clear Urine pH 6.0 5.0-9.0 Urine Specific [place] 1.009 1.001-1.035 Urine Protein Negative Negative Urine Ketones Negative Negative Urine Blood Negative Negative /uL Urine Nitrite Negative Negative Urine Bilirubin Negative Negative Urine Urobilinogen Normal Negative mg/dL Urine Leukocyte Esterase Trace Negative /uL Urine RBC 1 0 - 4 /hpf Urine Microscopic WBC 5 0-5 /HPF Urine Squamous Epithelial Cells Few <5 /hpf Urine Bacteria Few H None Seen /hpf Urine Glucose Normal Normal mg/dL Urine Opiates Screen Neg NEGATIVE Urine Fentanyl Screen Neg NEGATIVE Urine Barbiturates Screen Neg NEGATIVE Urine Phencyclidine Screen Neg NEGATIVE Urine Amphetamines Screen Neg NEGATIVE Urine Benzodiazepines Screen Neg NEGATIVE Urine Cocaine Screen Neg NEGATIVE Urine Cannabinoids Screen Neg NEGATIVE White Blood Count 7.8 4.4-10.8 10^3/uL Red Blood Count 4.25 4.0-5.20 10^6/uL Hemoglobin 13.7 12.2-16.2 g/dL Hematocrit 41.1 36.0-46.0 % Mean Corpuscular Volume 96.7 80.0-100.0 fL Mean Corpuscular Hemoglobin 32.1 H 28.0-32.0 pg Mean Corpuscular Hemoglobin Concent 33.2 32.0-36.0 g/dL Red Cell Distribution Width 13.1 11.8-14.3 % Platelet Count 158 140-450 10^3/uL Mean Platelet Volume 8.2 6.9-10.8 fL Neutrophils (%) (Auto) 66.7 37.0-80.0 % Lymphocytes (%) (Auto) 25.8 10.0-50.0 % Monocytes (%) (Auto) 5.2 0.0-12.0 % Eosinophils (%) (Auto) 1.7 0.0-7.0 % Basophils (%) (Auto) 0.6 0.0-2.0 % Neutrophils # (Auto) 5.2 1.6-8.6 10 ^3/uL Lymphocytes # (Auto) 2.0 0.4-5.4 10 ^3/uL Monocytes # (Auto) 0.4 0-1.3 10 ^3/uL Eosinophils # (Auto) 0.1 0-0.8 10 ^3/uL Basophils # (Auto) 0 0-0.2 10 ^3/uL Nucleated Red Blood Cells 0.0 % Sodium Level 141 136-145 mmol/L Potassium Level 4.3 3.5-5.1 mmol/L Chloride Level 109 H 98-107 mmol/L Carbon Dioxide Level 23 20-31 mmol/L Anion Gap 9 5-15 Blood Urea Nitrogen 13 9-23 mg/dL Creatinine 0.97 0.550-1.02 mg/dL Glomerular Filtration Rate Calc 65 >90 mL/min BUN/Creatinine Ratio 13.4 10.0-20.0 Serum Glucose 171 H 74-106 mg/dL Calcium Level 9.7 8.7-10.4 mg/dL Plasma/Serum Blood Alcohol < 3.0 <10 mg/dL Assessment/Plan Assessment/Plan Assessment Syncope rule out cardiac structural causes vs orthostatic Pulmonary vascular congestion or viral pneumonia Generalized weakness Autonomic dysfunction Paroxysmal AFIB Mild UTI (urinary tract infection) Overweight, BMI 29.2 Anxiety Arthritis Asthma Depression GERD hyperlipidemia HTN poor dentition History of CHF History of CVA Plan Pending echo, carotid Doppler, TSH and electrolytes and BNP; COVID, influenza and MRSA Furosemide 20mg once Antibiotic for UTI Protonix for GERD Continue home mediation Atorvastatin Continue home medication for HTN Diet: Cardiac, but make it soft due to not teeth Goal of care discussed for more than 25 minutes: FULL CODE Case and plan discussed with Dr. Hadley Plan discussed with: Patient My Orders Orders - KANWAL ROSE RESIDENT Procedure Category Date Status Time Admit ADMIT 10/14/24 Transmitted 20:29 Code Status CODE 10/14/24 Transmitted 20:29 Vital Signs BENITO 10/14/24 In Process 20:29 Review Orders With BENITO 10/14/24 In Process Adm. 20:29 Notify Of Changes BENITO 10/14/24 In Process From Base 20:29 Advance Directive BENITO 10/14/24 In Process 20:29 Patient Condition ORDERS 10/14/24 Transmitted 20:29 Allergies BENITO 10/14/24 In Process 20:29 Notify Of Changes BENITO 10/14/24 In Process From Base 20:29 Ceftriaxone 2gm/50ml PHA 10/14/24 Logged D5w (Rocephin 2gm/5 23:15 Acetaminophen/Codeine PHA 10/14/24 Logged Tablet (Tylenol W/ 23:15 Gabapentin Capsule PHA 10/15/24 Logged (Neurontin Capsule) 06:00 Quetiapine Fumarate PHA 10/15/24 Logged Tablet (Seroquel Tab 22:00 Rivaroxaban Tablet PHA 10/15/24 Logged (Xarelto Tablet) 10:00 (Nf) Atorvastatin PHA 10/15/24 Logged Calcium 22:00 (Nf) Carvedilol PHA 10/15/24 Logged (Coreg) 10:00 (Nf) Lurasidone PHA 10/15/24 Logged Hydrochloride (Latuda) 10:00 (Nf) Omeprazole PHA 10/15/24 Logged (Prilosec) 10:00 (Nf) Sertraline Hcl PHA 10/15/24 Logged 07:00 Echo 2d Mode Cardiac US 10/14/24 Logged DOP 23:05 Carotid Duplx W Color US 10/15/24 Logged DOP 08:00 Comprehensive LAB 10/15/24 Verified Metabolic Panel 04:00 Complete Blood Count LAB 10/15/24 Verified 04:00 Hemoglobin A1c LAB 10/15/24 Verified 04:00 Date of Service: Oct 14, 2024 Billing Provider: OSEAS HADLEY MD Common Visit Codes: [id number] INP/OBS CARE (HIGH) KANWAL ROSE RESIDENT Oct 14, 2024 23:20 OSEAS HADLEY MD Oct 19, 2024 12:21
[2024-10-15] VITALS (9 sets, daily range): BP systolic 109–154; BP diastolic 55–112; PULSE 71–111; RESP 17–19; TEMP 97.7–98.2; O2SAT 91–97
[2024-10-15] MEDS: ACETAMINOPHEN/CODEINE#3 (300/30mg) TAB PO PRN (02:14)
[2024-10-15] MEDS: SERTRALINE HCL 50 MG TAB PO SCH (05:54)
[2024-10-15] MEDS: GABAPENTIN 300 MG CAP PO SCH (05:55)
[2024-10-15] MEDS ORDERED: FLUO10TA18 PO (07:19)
[2024-10-15 07:34] LABS: Basophils # (auto) 0.1 10 ^3/uL (0-0.2); Basophils % (auto) 0.9 % (0.0-2.0); Eosinophils # (auto) 0.2 10 ^3/uL (0-0.8); Eosinophils % (auto) 2.2 % (0.0-7.0); Hematocrit 38.6 % (36.0-46.0); Hemoglobin 13.5 g/dL (12.2-16.2); Lymphocytes # (auto) 2.4 10 ^3/uL (0.4-5.4); Lymphocytes % (auto) 29.8 % (10.0-50.0); Mean Corpuscular Hemoglobin 33.5 pg (28.0-32.0); Mean Corpuscular Volume 95.6 fL (80.0-100.0); Monocytes # (auto) 0.4 10 ^3/uL (0-1.3); Monocytes % (auto) 5.5 % (0.0-12.0); Neutrophils # (auto) 4.9 10 ^3/uL (1.6-8.6); Neutrophils % (auto) 61.6 % (37.0-80.0); Nucleated Red Blood Cells % 0.1 %; Platelet Count (auto) 163 10^3/uL (140-450); Red Blood Cells 4.03 10^6/uL (4.0-5.20); Red Cell Distribution Width 12.8 % (11.8-14.3); White Blood Cell 7.9 10^3/uL (4.4-10.8)
[2024-10-15 07:36] LABS: Alanine Aminotransferase 20 U/L (7-40); Albumin 4.1 g/dL (3.2-4.8); Alkaline Phosphatase 167 U/L (46-116); Anion Gap 9 (5-15); Aspartate Aminotransferase 17 U/L (13-40); BUN/Creatinine Ratio 15.3 (10.0-20.0); Bilirubin, Total 0.5 mg/dL (0.2-1.0); Blood Urea Nitrogen 13 mg/dL (9-23); Calcium 9.3 mg/dL (8.7-10.4); Carbon Dioxide 24 mmol/L (20-31); Chloride 109 mmol/L (98-107); Glucose 106 mg/dL (74-106); Sodium 142 mmol/L (136-145); Total Protein 6.6 g/dL (5.7-8.2)
[2024-10-15] MEDS: RIVAROXABAN 20 MG TAB PO SCH (08:46)
[2024-10-15] MEDS: PANTOPRAZOLE 40 MG TAB PO SCH (08:46)
[2024-10-15] MEDS: FUROSEMIDE 20 MG/2 ML VIAL IV ONE (08:47)
[2024-10-15] MEDS ORDERED: cefTRIAXone 1GM/50ML D5W 50 ML IV SCH (09:00)
[2024-10-15] MEDS: LURASIDONE HYDROCHLORIDE 40 MG PO SCH (09:46)
[2024-10-15] MEDS ORDERED: CARVEDILOL 3.125 MG TAB PO SCH (10:00)
--- NOTE | 2024-10-15 11:58 | DVH ---
CAROTID ARTERIAL DOPPLER CLINICAL HISTORY: rule out carotid stenosis TECHNIQUE: Doppler study of bilateral carotid/vertebral arteries were performed. Comparison: None FINDINGS: The bilateral common carotid, external and internal carotid arteries appear patent without hemodynami julisa significant stenosis. There is no significant flow limiting plaque formation identified.The sp ectral wave forms and peak systolic velocities are within normal limits. Antegrade flow is present within the vertebral arteries with appropriate velocities and waveforms. Right ICA/CCA PSV ratio = 1.3. Left ICA/CCA PSV ratio = 1.3 . IMPRESSION: 1. No hemodynamically significant stenosis within the carotid arteries. HS:Y
[2024-10-15] MEDS: cefTRIAXone 1GM/50ML D5W 50 ML IV SCH (16:57)
--- NOTE | 2024-10-15 17:38 | DVHPN2 ---
Subjective Patient denies any symptoms at this time Reviewed: Care Plan, H&P, Labs, Medications, Previous Orders Changes from previous H/P or p: No Changes General: Per HPI Objective Vitals Vital Signs Date Time Temp Pulse Resp B/P (MAP) Pulse Ox O2 Delivery O2 Flow Rate FiO2 10/15/24 17:00 97.8 100 19 136/112 (120) 91 97.8 10/15/24 08:00 Room Air* 0 21 Intake/Output Intake and Output 10/15/24 07:00 Intake Total 100 ml Balance 100 ml Intake Oral 100 ml # Voids 1 General Appearance: Alert, Oriented X3, Cooperative, No acute distress HEENT: Atraumatic, PERRLA Lungs: Clear to auscultation, Normal air movement Cardiovascular: Normal S1, Normal S2 Musculoskeletal: Normal sensory function, Normal motor function Neuro: Normal gait, Normal speech Skin: Dry, Intact Psych/Mental Status: Mental status NL, Mood NL Medications Current Medications Medications Dose Ordered Sig/Quentin Route Start Time Stop Time Status Last Admin Dose Admin Acetaminophen/ Codeine Phosphate 1 tab Q6HP PRN PO 10/14/24 23:15 10/15/24 13:39 1 TAB Gabapentin 400 mg TID PO 10/15/24 06:00 10/15/24 13:39 400 MG Quetiapine Fumarate 100 mg HS PO 10/15/24 22:00 Rivaroxaban 20 mg DAILY PO 10/15/24 10:00 10/15/24 08:46 20 MG Atorvastatin Calcium 10 mg HS PO 10/15/24 22:00 Patient Own Medication 40 mg BID PO 10/15/24 10:00 Pantoprazole Sodium 40 mg DAILY PO 10/15/24 10:00 10/15/24 08:46 40 MG Ceftriaxone Sodium 50 ml @ 100 mls/hr DAILY@1500 IV 10/15/24 15:00 10/15/24 16:57 100 MLS/HR Laboratory Results Laboratory Tests 10/15/24 06:50 Chemistry Test 10/15/24 06:50 Albumin 4.1 g/dL (3.2-4.8) Calcium Level 9.3 mg/dL (8.7-10.4) Total Protein 6.6 g/dL (5.7-8.2) Cardiac Markers Test 10/15/24 06:50 B-Type Natriuretic Peptide 20.75 pg/mL (0-100) LFT Test 10/15/24 06:50 Alanine Aminotransferase (ALT) 20 U/L (7-40) Alkaline Phosphatase 167 U/L (46-116) H Aspartate Amino Transferase (AST) 17 U/L (13-40) Total Bilirubin 0.5 mg/dL (0.2-1.0) HgA1c, TSH Test 10/15/24 06:50 Hemoglobin A1c 5.8 % A1C (<5.7) H Thyroid Stimulating Hormone (TSH) 3.53 uIU/mL (0.55-4.78) Urinalysis Test 10/14/24 11:42 Urine Color Colorless (Yellow) Urine Clarity Clear (Clear) Urine pH 6.0 (5.0-9.0) Urine Specific [place] 1.009 (1.001-1.035) Urine Protein Negative (Negative) Urine Ketones Negative (Negative) Urine Blood Negative /uL (Negative) Urine Nitrite Negative (Negative) Urine Bilirubin Negative (Negative) Urine Urobilinogen Normal mg/dL (Negative) Urine Leukocyte Esterase Trace /uL (Negative) Urine RBC 1 /hpf (0 - 4) Urine Microscopic WBC 5 /HPF (0-5) Urine Squamous Epithelial Cells Few /hpf (<5) Urine Bacteria Few /hpf (None Seen) H Urine Glucose Normal mg/dL (Normal) Labs and/or images reviewed: Labs reviewed by me Assessment/Plan Assessment/Plan Impression: -syncope with collapse -paroxysmal atrial fibrillation -primary hypertension -anxiety disorder -chronic systolic heart failure -asthma -depression Plan: -echocardiogram pending -carotid Doppler study negative -CT scan of the head negative -order orthostatic blood pressures given patient reports her syncope occurred while she was attempting to stand up -continue anticoagulation -monitor for cardiac dysrhythmia Total time spent with patient discussing and formulating plan of care: 35 minutes. This medical document was created using an electronic medical record system with [employer] dictation system. Although this document has been carefully reviewed, there may still be some phonetic and typographical errors. These areas are purely typographical due to imperfections of the software programs, and do not reflect any compromise in the patient's medical care. Plan discussed with: Patient, Other (RN) My Orders Orders - JONATHAN MORALEZ NP Procedure Category Date Status Time Orthostatic Vital ORDERS 10/15/24 Transmitted Signs 17:07 Date of Service: Oct 15, 2024 Billing Provider: JONATHAN MORALEZ NP Common Visit Codes: [id number] INP/OBS CARE(HIGH) JONATHAN MORALEZ NP Oct 15, 2024 17:38
[2024-10-15 20:46] LABS: Rapid Influenza A Negative (Negative); Rapid Influenza B Negative (Negative)
[2024-10-15 20:47] LABS: COVID19 ANTIGEN SOFIA FIA NEGATIVE (NEGATIVE)
[2024-10-15] MEDS: ATORVASTATIN 20 MG TAB PO SCH (21:15)
[2024-10-15] MEDS: QUEtiapine FUMARATE 25 MG TAB PO SCH (21:16)
[2024-10-16] VITALS (7 sets, daily range): BP systolic 9–144; BP diastolic 68–104; PULSE 71–91; RESP 15–18; TEMP 97.3–98; O2SAT 92–97
--- NOTE | 2024-10-16 14:26 | DVHPN2 ---
Subjective General weakness with dizziness during ambulation. Reviewed: Care Plan, H&P, Labs, Medications, Previous Orders Changes from previous H/P or p: Changes General: Per HPI Objective Vitals Vital Signs Date Time Temp Pulse Resp B/P (MAP) Pulse Ox O2 Delivery O2 Flow Rate FiO2 10/16/24 13:00 97.9 72 16 139/79 (99) 94 97.9 10/16/24 08:00 Room Air* 0 21 Intake/Output Intake and Output 10/16/24 07:00 Intake Total 840 ml Balance 840 ml Intake Oral 840 ml # Voids 13 General Appearance: Alert, Oriented X3, Cooperative, No acute distress HEENT: Atraumatic, PERRLA Lungs: Clear to auscultation, Normal air movement Cardiovascular: Normal S1, Normal S2 Musculoskeletal: Normal sensory function, Normal motor function Neuro: Normal gait, Normal speech Skin: Dry, Intact Psych/Mental Status: Mental status NL, Mood NL Medications Current Medications Medications Dose Ordered Sig/Quentin Route Start Time Stop Time Status Last Admin Dose Admin Acetaminophen/ Codeine Phosphate 1 tab Q6HP PRN PO 10/14/24 23:15 10/16/24 12:59 1 TAB Gabapentin 400 mg TID PO 10/15/24 06:00 10/16/24 12:59 400 MG Quetiapine Fumarate 100 mg HS PO 10/15/24 22:00 10/15/24 21:16 100 MG Rivaroxaban 20 mg DAILY PO 10/15/24 10:00 10/16/24 09:11 20 MG Atorvastatin Calcium 10 mg HS PO 10/15/24 22:00 10/15/24 21:15 10 MG Patient Own Medication 40 mg BID PO 10/15/24 10:00 Pantoprazole Sodium 40 mg DAILY PO 10/15/24 10:00 10/16/24 09:11 40 MG Ceftriaxone Sodium 50 ml @ 100 mls/hr DAILY@1500 IV 10/15/24 15:00 10/15/24 16:57 100 MLS/HR Laboratory Results Laboratory Tests 10/15/24 06:50 Urinalysis Test 10/14/24 11:42 Urine Color Colorless (Yellow) Urine Clarity Clear (Clear) Urine pH 6.0 (5.0-9.0) Urine Specific [place] 1.009 (1.001-1.035) Urine Protein Negative (Negative) Urine Ketones Negative (Negative) Urine Blood Negative /uL (Negative) Urine Nitrite Negative (Negative) Urine Bilirubin Negative (Negative) Urine Urobilinogen Normal mg/dL (Negative) Urine Leukocyte Esterase Trace /uL (Negative) Urine RBC 1 /hpf (0 - 4) Urine Microscopic WBC 5 /HPF (0-5) Urine Squamous Epithelial Cells Few /hpf (<5) Urine Bacteria Few /hpf (None Seen) H Urine Glucose Normal mg/dL (Normal) Microbiology Microbiology Date/Time Source Procedure Growth Status 10/15/24 10:18 Blood Blood Culture - Preliminary NO GROWTH AFTER 24 HOURS OF INCUBATION. Resulted 10/15/24 00:00 Nose MRSA Screen - Final Complete 10/14/24 11:42 Voided Urine Urine Culture - Preliminary Resulted Labs and/or images reviewed: Labs reviewed by me, Image(s) reviewed by me Assessment/Plan Assessment/Plan Impression: -syncope with collapse -paroxysmal atrial fibrillation -primary hypertension -anxiety disorder -chronic systolic heart failure -asthma -depression Plan: Events: Positive orthostatic BP. ? PAF. -IV replete -echocardiogram pending (10/16/24) -carotid Doppler study negative -CT scan of the head negative -order orthostatic blood pressures given patient reports her syncope occurred while she was attempting to stand up -continue anticoagulation -monitor for cardiac dysrhythmia -Reassess for DC tomorrow. Total time spent with patient discussing and formulating plan of care: 35 minutes. This medical document was created using an electronic medical record system with [employer] dictation system. Although this document has been carefully reviewed, there may still be some phonetic and typographical errors. These areas are purely typographical due to imperfections of the software programs, and do not reflect any compromise in the patient's medical care. Plan discussed with: Patient, Other (RN.) My Orders Orders - JONATHAN MORALEZ NP Procedure Category Date Status Time Orthostatic Vital ORDERS 10/15/24 Transmitted Signs 17:07 NS PHA 10/16/24 Verified 14:30 Date of Service: Oct 16, 2024 Billing Provider: JONATHAN MORALEZ NP Common Visit Codes: [id number] INP/OBS CARE(HIGH) JONATHNA MORALEZ NP Oct 16, 2024 14:26
--- NOTE | 2024-10-16 15:00 | DVHSR ---
APPROVED REPORT EXAM: Two-dimensional and M-mode echocardiogram with Doppler and color Doppler. Blood Pressure: 117/55 mmHg INDICATION Syncope RISK FACTORS Height: 5'5, Weight: 175 DIMENSIONS LVDd (3.8-5.7cm)LA (2D)3.4 (1.9-4.0cm)Aortic Root (2.0-3.7cm) EF (%) 55.0 (55-70%)Rt. Atrium2.2 (1.9-4.0cm)Asc. Aorta cm IVSd (0.7-1.1cm)RV (D)2.2 (1.8-2.4cm) Mitral Valve MitralMitral Stenosis E wave0.43m/sMV Mean GR.mmHg A wave0.69m/sMV Peak GR.mmHg E/A ratio0.62D MVAcm2 DECEL [id number] 1/2 Timems Aortic Valve Aortic ValveAortic Stenosis V10.95m/Patel Mean GR.3mmHg V21.18m/Patel Peak GR.6mmHg LVOT Diameter2.0 (1.8-2.4cm)Doppler AVA2.53cm2 Other Information Quality : Technically LimitedRhythm : Technically limited study due to patient position.body habitus. Conclusion Technically good study. Sinus rhythm. Off axis views. Mild LVH. Valves appear to be structurally normal. EF of 65% with normal RV function. Dopplers unremarkable. No pericardial effusion masses or vegetations
[2024-10-16] MEDS: SODIUM CHLORIDE 0.9% 1,000 ML IV SCH (16:18)
[2024-10-16] MEDS: GABAPENTIN 400 MG CAP PO SCH (22:08)
[2024-10-16] MEDS: QUEtiapine FUMARATE 100 MG TAB PO SCH (22:08)
[2024-10-17 01:00] VITALS: BP 124/73; PULSE 73; RESP 18; TEMP 98; O2SAT 95
[2024-10-17 08:00] VITALS: PULSE 74; PULSE 77; RESP 16; O2SAT 94
[2024-10-17 08:30] VITALS: BP 112/62; PULSE 77; RESP 16; TEMP 98.3; O2SAT 95
[2024-10-17 12:30] VITALS: BP 124/74; PULSE 70; RESP 16; TEMP 97.7; O2SAT 95
--- NOTE | 2024-10-17 12:47 | DVHDS2 ---
Discharge Summary Date of Admission Oct 14, 2024 at 20:29 Date of Discharge: Oct 17, 2024 Admitting Diagnosis Syncope with collapse Labs/Diagnostic Data: Laboratory Results Test 10/15/24 07:12 10/15/24 06:50 10/15/24 00:00 10/14/24 11:55 Vitamin B12 Level 2049 pg/mL (211-911) White Blood Count 7.9 10^3/uL (4.4-10.8) Red Blood Count 4.03 10^6/uL (4.0-5.20) Hemoglobin 13.5 g/dL (12.2-16.2) Hematocrit 38.6 % (36.0-46.0) Mean Corpuscular Volume 95.6 fL (80.0-100.0) Mean Corpuscular Hemoglobin 33.5 pg (28.0-32.0) Mean Corpuscular Hemoglobin Concent 35.0 g/dL (32.0-36.0) Red Cell Distribution Width 12.8 % (11.8-14.3) Platelet Count 163 10^3/uL (140-450) Mean Platelet Volume 8.3 fL (6.9-10.8) Neutrophils (%) (Auto) 61.6 % (37.0-80.0) Lymphocytes (%) (Auto) 29.8 % (10.0-50.0) Monocytes (%) (Auto) 5.5 % (0.0-12.0) Eosinophils (%) (Auto) 2.2 % (0.0-7.0) Basophils (%) (Auto) 0.9 % (0.0-2.0) Neutrophils # (Auto) 4.9 10 ^3/uL (1.6-8.6) Lymphocytes # (Auto) 2.4 10 ^3/uL (0.4-5.4) Monocytes # (Auto) 0.4 10 ^3/uL (0-1.3) Eosinophils # (Auto) 0.2 10 ^3/uL (0-0.8) Basophils # (Auto) 0.1 10 ^3/uL (0-0.2) Nucleated Red Blood Cells 0.1 % Sodium Level 142 mmol/L (136-145) Potassium Level 4.0 mmol/L (3.5-5.1) Chloride Level 109 mmol/L (98-107) Carbon Dioxide Level 24 mmol/L (20-31) Anion Gap 9 (5-15) Blood Urea Nitrogen 13 mg/dL (9-23) Creatinine 0.85 mg/dL (0.550-1.02) Glomerular Filtration Rate Calc 76 mL/min (>90) BUN/Creatinine Ratio 15.3 (10.0-20.0) Serum Glucose 106 mg/dL (74-106) Hemoglobin A1c 5.8 % A1C (<5.7) Calcium Level 9.3 mg/dL (8.7-10.4) Total Bilirubin 0.5 mg/dL (0.2-1.0) Aspartate Amino Transferase (AST) 17 U/L (13-40) Alanine Aminotransferase (ALT) 20 U/L (7-40) Alkaline Phosphatase 167 U/L (46-116) B-Type Natriuretic Peptide 20.75 pg/mL (0-100) Total Protein 6.6 g/dL (5.7-8.2) Albumin 4.1 g/dL (3.2-4.8) Thyroid Stimulating Hormone (TSH) 3.53 uIU/mL (0.55-4.78) Influenza Type A Antigen Negative (Negative) Influenza Type B Antigen Negative (Negative) SARS-CoV-2 Antigen (Rapid) Negative (NEGATIVE) Troponin I High Sensitivity < 3 ng/L (</=34) Test 10/14/24 11:42 10/14/24 10:56 Urine Color Colorless (Yellow) Urine Clarity Clear (Clear) Urine pH 6.0 (5.0-9.0) Urine Specific Basye 1.009 (1.001-1.035) Urine Protein Negative (Negative) Urine Ketones Negative (Negative) Urine Blood Negative /uL (Negative) Urine Nitrite Negative (Negative) Urine Bilirubin Negative (Negative) Urine Urobilinogen Normal mg/dL (Negative) Urine Leukocyte Esterase Trace /uL (Negative) Urine RBC 1 /hpf (0 - 4) Urine Microscopic WBC 5 /HPF (0-5) Urine Squamous Epithelial Cells Few /hpf (<5) Urine Bacteria Few /hpf (None Seen) Urine Glucose Normal mg/dL (Normal) Urine Opiates Screen Neg (NEGATIVE) Urine Fentanyl Screen Neg (NEGATIVE) Urine Barbiturates Screen Neg (NEGATIVE) Urine Phencyclidine Screen Neg (NEGATIVE) Urine Amphetamines Screen Neg (NEGATIVE) Urine Benzodiazepines Screen Neg (NEGATIVE) Urine Cocaine Screen Neg (NEGATIVE) Urine Cannabinoids Screen Neg (NEGATIVE) Plasma/Serum Blood Alcohol < 3.0 mg/dL (<10) Other Laboratory Tests 10/15/24 06:50 Brief Hx & Hospital Course: History of Present Illness Patient is a 64-year-old female who was brought to the ED to due to pre-syncopal episode. [place] where she had two episodes of " almost passed out". EN route the patient's Accu-Chek was 160. She did not hit her did not hit her head or had any other injuries. The patient denies any chest pain, palpitation or shortness of breath but she complained of dizziness and a headache. She denies any nausea, vomiting or diarrhea. She denied any cardiac history but mentioned that she takes lots of medication morning, afternoon and in the evening. In the ED, CT head showed no acute intracranial abnormality, chest ex-ray showed Pulmonary vascular congestion or viral pneumonia, Ekg showed sinus rhythm and no prolong QTc. Urinalysis showed trace leukocyte esterase with few bacteria and toxicology was negative for any illicit substances that might have caused the syncope. Patient's home medication include carvedilol. Course of hospitalization: Patient had CT scan of the head which was negative for any acute pathology. Echocardiogram also unremarkable. Patient was carotid Doppler study which was negative. Patient was ambulated with noted dizziness. Orthostatic hypotension was noted with orthostatic vital signs. Patient was given IV hydration overnight. Dizziness has resolved. Discussion was made with the patient regarding all tests and findings. She was agreeable to be discharged home. She was instructed to stay hydrated. She was to continue all previous home medications and follow up with her PCP in 1-2 weeks. Physical examination General: Alert and Oriented x3. No acute distress. Well-nourished. Eyes: EOMI. Anicteric. HENT: Moist mucous membranes. Lungs: Clear to auscultation bilaterally. No accessory muscle use. Cardiovascular: Regular rate and rhythm. No murmur. No JVD. Abdomen: Soft, non-tender and non-distended. No palpable masses. Extremities: No edema. Non-tender. Skin: No rashes or lesions. Warm. Neurologic: No focal neurological deficits. CN II-XII grossly intact, but not individually tested. Psychiatric: Cooperative. Appropriate mood and affect. Total time spent with patient discussing and formulating plan of care: 35 minutes. This medical document was created using an electronic medical record system with [employer] dictation system. Although this document has been carefully reviewed, there may still be some phonetic and typographical errors. These areas are purely typographical due to imperfections of the software programs, and do not reflect any compromise in the patient's medical care. Condition at Discharge: Fair Final Diagnosis/Problems List Syncope with collapse, secondary to vasovagal and probable orthostatic hypotension Discharge Disposition: Home Discharge Instruct/Medications Diet: Regular Activity: No Restrictions, As Tolerated Follow Up/Referral: Follow up PCP in 1-2 weeks Medications: Continue all home medications 36 Discharge Statement: "Patient was advised to return to the ER or call 911 if any headaches, dizziness, shortness of breath, chest pain, abdominal pain, bleeding, fevers, or worsening of medical condition. Patient was counseled about treatment plan, medications, possible side effects, patientverbalized understanding. All questions were answered to the best of my ability. This discharge took greater then 30 minutes in planning, reviewing documentation, counseling the patient, and discussing with other team members." ASSESSMENT ASSESSMENT Assessment Syncope with collapse, secondary to vasovagal and probable orthostatic hypotension Date of Service: Oct 17, 2024 Billing Provider: JONATHAN MORALEZ NP Common Visit Codes: 21711-TSS/OBS DISCH DAY >30min JONATHAN MORALEZ NP Oct 17, 2024 12:47
[2024-10-17 13:20] VITALS: TEMP 36.8
== END 2024-10-17 15:27 | disposition home or self-care (01) | DRG 204 ==
LOC: ER 10:40 → EDBD 10:40 → OVERFLOW 20:29 → EAST 10-15 01:16 → TELE-EAST 10-15 11:07
PROVIDERS: ADMIT Nurse Practitioner Acute Care; ATTEND Nurse Practitioner Acute Care
DX: I95.1 Orthostatic hypotension (principal); I11.0 Hypertensive heart disease with heart failure; I50.22 Chronic systolic (congestive) heart failure; E66.3 Overweight; F32.A Depression, unspecified; Z20.822 Contact with and (suspected) exposure to COVID-19; I48.0 Paroxysmal atrial fibrillation; F41.9 Anxiety disorder, unspecified; N30.00 Acute cystitis without hematuria; J45.909 Unspecified asthma, uncomplicated; K21.9 Gastro-esophageal reflux disease without esophagitis; Z86.73 Personal history of transient ischemic attack (TIA), and cerebral infarction without residual deficits; Z90.710 Acquired absence of both cervix and uterus; Z79.899 Other long term (current) drug therapy; Z88.5 Allergy status to narcotic agent; Z90.49 Acquired absence of other specified parts of digestive tract; Z68.29 Body mass index [BMI] 29.0-29.9, adult; M19.90 Unspecified osteoarthritis, unspecified site
CPT/HCPCS: 36415; 70450; 71045; 80048; 80053; 80307; 80320; 81001; 82607; 83036; 83880; 84443; 84484; 85025; 87040; 87081; 87086; 87426; 87804; 93005; 93306; 93886; 96365; 99291; G0378